=== PATIENT | male | born 1935 | race Caucasian/White ===

== ENCOUNTER 2017-08-31 20:34 | Emergency (ER) | payer BC ==
[~2017-08-31] VITALS: Ht 185.4 cm; Wt 74.0 kg
[2017-08-31 20:35] VITALS: BP 168/111; PULSE 92; RESP 16; TEMP 97.4; O2SAT 98
--- NOTE | 2017-08-31 20:51 | PD ---
HPI Chief Complaint: Complaint Time Seen by Provider: 20:47 Travel History International Travel<30 days: No Contact w/Intl Traveler<30days: No Traveled to known affect area: No History of Present Illness HPI 82-year-old male with history of A. fib, on Coumadin, hypertension, CHF, presents emergency department for evaluation of acute hematuria today. Patient denies any pain. Denies any trauma. Denies any difficulty and flow. Patient states this happened 6-8 months ago. He was seen and evaluated by a urologist in [place] where he is from. They said he may have adhesions, but they did not see anything else abnormal. Patient's last INR was 2 weeks ago, prior to him vacationing here. It was normal. Denies any other bleeding or easily bruising. No black tarry or uriel red stools. No other symptoms to report. PFSH Past Medical History Hx Anticoagulant Therapy: Yes (COUMADIN ) Atrial Fibrillation: Yes Congestive Heart Failure: Yes Hypertension: Yes Past Surgical History Cardiac Surgery: Yes (PACEMAKER ) Genitourinary Surgery: Yes (PROSTATE ) Social History Alcohol Use: No Tobacco Use: Yes Substance Use: No Allergies-Medications (Allergen,Severity, Reaction): Coded Allergies: No Known Allergies (Unverified , 08/31/17) Review of Systems Except as stated in HPI: all other systems reviewed are Neg Physical Exam Narrative GENERAL: Well-nourished elderly male patient, ambulatory and in no acute distress. SKIN: Focused skin assessment warm/dry. HEAD: Atraumatic. Normocephalic. EYES: Pupils equal and round. No scleral icterus. No injection or drainage. ENT: No nasal bleeding or discharge. Mucous membranes pink and moist. NECK: Trachea midline. No JVD. CARDIOVASCULAR: Regular rate and irregular rhythm. No murmur appreciated. RESPIRATORY: No accessory muscle use. Clear to auscultation. Breath sounds equal bilaterally. GASTROINTESTINAL: Abdomen soft, non-tender, nondistended. Hepatic and splenic margins not palpable. MUSCULOSKELETAL: No obvious deformities. No clubbing. No cyanosis. No edema. NEUROLOGICAL: Awake and alert. No obvious cranial nerve deficits. Motor grossly within normal limits. Normal speech. PSYCHIATRIC: Appropriate mood and affect; insight and judgment normal. Data Data Last Documented VS Vital Signs Date Time Temp Pulse Resp B/P (MAP) Pulse Ox O2 Delivery O2 Flow Rate FiO2 08/31/17 20:35 97.4 92 16 168/111 (130) 98 Room Air Orders Orders Urinalysis - C+S If Indicated (08/31/17 21:02) Coag Profile (08/31/17 21:02) Complete Blood Count With Diff (08/31/17 21:02) Basic Metabolic Panel (Bmp) (08/31/17 21:02) Iv Access Insert/Monitor (08/31/17 21:02) Urine Culture (08/31/17 21:30) Potassium Chloride (Kcl) (08/31/17 22:30) Labs Laboratory Tests Test 08/31/17 21:30 08/31/17 21:31 Urine Color RED Urine Turbidity MARKED Urine pH 6.5 Urine Specific [place] 1.019 Urine Protein 300 mg/dL Urine Glucose (UA) NEG mg/dL Urine Ketones NEG mg/dL Urine Occult Blood LARGE Urine Nitrite NEG Urine Bilirubin NEG Urine Urobilinogen LESS THAN 2.0 MG/DL Urine Leukocyte Esterase NEG Urine RBC /hpf Urine WBC 77 /hpf Urine WBC Clumps MANY Microscopic Urinalysis Comment CULTURE INDICATED White Blood Count 8.0 TH/MM3 Red Blood Count 4.94 MIL/MM3 Hemoglobin 14.2 GM/DL Hematocrit 41.9 % Mean Corpuscular Volume 84.9 FL Mean Corpuscular Hemoglobin 28.8 PG Mean Corpuscular Hemoglobin Concent 33.9 % Red Cell Distribution Width 15.6 % Platelet Count 141 TH/MM3 Mean Platelet Volume 8.2 FL Neutrophils (%) (Auto) 70.5 % Lymphocytes (%) (Auto) 13.5 % Monocytes (%) (Auto) 11.8 % Eosinophils (%) (Auto) 3.1 % Basophils (%) (Auto) 1.1 % Neutrophils # (Auto) 5.7 TH/MM3 Lymphocytes # (Auto) 1.1 TH/MM3 Monocytes # (Auto) 0.9 TH/MM3 Eosinophils # (Auto) 0.3 TH/MM3 Basophils # (Auto) 0.1 TH/MM3 CBC Comment DIFF FINAL Differential Comment Prothrombin Time 23.0 SEC Prothromb Time International Ratio 2.3 RATIO Activated Partial Thromboplast Time 40.3 SEC Blood Urea Nitrogen 34 MG/DL Creatinine 1.70 MG/DL Random Glucose 132 MG/DL Calcium Level 8.7 MG/DL Sodium Level 138 MEQ/L Potassium Level 3.2 MEQ/L Chloride Level 104 MEQ/L Carbon Dioxide Level 28.4 MEQ/L Anion Gap 6 MEQ/L Estimat Glomerular Filtration Rate 39 ML/MIN [facility] Medical Decision Making Medical Screen Exam Complete: Yes Emergency Medical Condition: Yes Medical Record Reviewed: Yes Differential Diagnosis Hypo-coagulopathy versus hemorrhagic cystitis versus neoplasm versus pyelonephritis Narrative Course 82-year-old male presents to emergency department for evaluation of acute onset hematuria. Patient has no pain. States that he feels well. Exam is unremarkable except for uriel red hematuria. Basic lab work and urinalysis are sent. Laboratory Tests Test 08/31/17 21:30 08/31/17 21:31 Urine Color RED Urine Turbidity MARKED Urine pH 6.5 Urine Specific [place] 1.019 Urine Protein 300 mg/dL Urine Glucose (UA) NEG mg/dL Urine Ketones NEG mg/dL Urine Occult Blood LARGE Urine Nitrite NEG Urine Bilirubin NEG Urine Urobilinogen LESS THAN 2.0 MG/DL Urine Leukocyte Esterase NEG Urine RBC /hpf Urine WBC 77 /hpf Urine WBC Clumps MANY Microscopic Urinalysis Comment CULTURE INDICATED White Blood Count 8.0 TH/MM3 Red Blood Count 4.94 MIL/MM3 Hemoglobin 14.2 GM/DL Hematocrit 41.9 % Mean Corpuscular Volume 84.9 FL Mean Corpuscular Hemoglobin 28.8 PG Mean Corpuscular Hemoglobin Concent 33.9 % Red Cell Distribution Width 15.6 % Platelet Count 141 TH/MM3 Mean Platelet Volume 8.2 FL Neutrophils (%) (Auto) 70.5 % Lymphocytes (%) (Auto) 13.5 % Monocytes (%) (Auto) 11.8 % Eosinophils (%) (Auto) 3.1 % Basophils (%) (Auto) 1.1 % Neutrophils # (Auto) 5.7 TH/MM3 Lymphocytes # (Auto) 1.1 TH/MM3 Monocytes # (Auto) 0.9 TH/MM3 Eosinophils # (Auto) 0.3 TH/MM3 Basophils # (Auto) 0.1 TH/MM3 CBC Comment DIFF FINAL Differential Comment Prothrombin Time 23.0 SEC Prothromb Time International Ratio 2.3 RATIO Activated Partial Thromboplast Time 40.3 SEC Blood Urea Nitrogen 34 MG/DL Creatinine 1.70 MG/DL Random Glucose 132 MG/DL Calcium Level 8.7 MG/DL Sodium Level 138 MEQ/L Potassium Level 3.2 MEQ/L Chloride Level 104 MEQ/L Carbon Dioxide Level 28.4 MEQ/L Anion Gap 6 MEQ/L Estimat Glomerular Filtration Rate 39 ML/MIN Sites patient's urine, lab work is without acute concern. He does have renal insufficiency and elevated BUNs however is likely due to diuretic use and history CHF. I discussed the patient my attending physician who agrees he can be discharged home at this time. Patient will be returning to [place] this weekend and agrees to follow-up with urology. I've explained him if he feels as though he is retaining urine or unable to void he needs to return immediately. He agrees to return immediately with any acute worsening of symptoms. Diagnosis Primary Impression: Hematuria, gross Referrals: Urologist Patient Instructions: General Instructions, Hematuria (ED) Additional Instructions: It is important that you follow-up with urologist as soon as possible Return with any acute worsening of symptoms Your INR today was 2.3 Med/Other Pt SpecificInfo: No Change to Meds Disposition: 01 DISCHARGE HOME Condition: Stable Kandi Jessica Aug 31, 2017 20:51
[2017-08-31 21:58] LABS: AUTOMATED NEUTROPHIL # 5.7 TH/MM3 (1.8-7.7); BASOPHIL # 0.1 TH/MM3 (0-0.2); BASOPHIL % 1.1 % (0.0-2.0); EOSINOPHIL # 0.3 TH/MM3 (0-0.4); EOSINOPHIL % 3.1 % (0.0-4.0); HEMATOCRIT 41.9 % (39.0-51.0); HEMOGLOBIN 14.2 GM/DL (13.0-17.0); LYMPH % 13.5 % (9.0-44.0); LYMPHOCYTE # 1.1 TH/MM3 (1.0-4.8); MEAN CELL VOLUME 84.9 FL (80.0-100.0); MEAN CORPUSCULAR HEMOGLOBIN 28.8 PG (27.0-34.0); MEAN CORPUSCULAR HGB CONC 33.9 % (32.0-36.0); MEAN PLATELET VOLUME 8.2 FL (7.0-11.0); MONO % 11.8 % (0.0-8.0); MONOCYTE # 0.9 TH/MM3 (0-0.9); NEUT % 70.5 % (16.0-70.0); PLATELET COUNT 141 TH/MM3 (150-450); RED BLOOD COUNT 4.94 MIL/MM3 (4.50-5.90); RED CELL DISTRIBUTION WIDTH 15.6 % (11.6-17.2)
[2017-08-31 22:04] LABS: BILIRUBIN, URINE NEG (NEG); BLOOD, URINE LARGE (NEG); GLUCOSE,URINE NEG (NEG); KETONE, URINE NEG (NEG); NITRITE,URINE NEG (NEG); PH, URINE 6.5 (5.0-8.5); URINE COLOR RED (YELLW/STRAW); URINE LEUKOCYTE ESTERASE NEG (NEG); WHITE BLOOD CELL CLUMPS MANY
[2017-08-31 22:12] LABS: BICARBONATE 28.4 MEQ/L (21.0-32.0); CALCIUM 8.7 MG/DL (8.5-10.1); CREATININE 1.7 MG/DL (0.60-1.30)
[2017-08-31 22:17] LABS: INTERNATIONAL NORMALIZED RATIO 2.3 RATIO
[2017-08-31] MEDS ORDERED: POTASSIUM CHLORIDE 20 MEQ CONTROLLED RELEASE TAB PO ONE (22:30)
[2017-08-31 22:34] VITALS: BP 160/100; PULSE 80; RESP 16
[2017-09-01] MEDS ORDERED: VITA2000 PO (13:34)
[2017-09-01] MEDS ORDERED: METO50TA PO (13:34)
[2017-09-01] MEDS ORDERED: WARF-23 PO (13:34)
[2017-09-01] MEDS ORDERED: LOSA25TA PO (13:34)
[2017-09-01] MEDS ORDERED: MULTTAB67 PO (13:34)
[2017-09-01] MEDS ORDERED: CEPH-460 PO (15:41)
[2017-09-01] MEDS ORDERED: HYDR-3799 PO (16:30)
== END 2017-08-31 22:48 | disposition home or self-care (01) ==
LOC: NEPE 20:34
DX: R31.0 Gross hematuria (principal); N28.9 Disorder of kidney and ureter, unspecified; I11.0 Hypertensive heart disease with heart failure; I50.9 Heart failure, unspecified; I48.91 Unspecified atrial fibrillation; Z72.0 Tobacco use
CPT/HCPCS: 80048; 81001; 85025; 85610; 85730; 87086; 99283

== ENCOUNTER 2017-09-01 12:07 | Emergency (ER) | payer BC ==
[2017-09-01 12:46] VITALS: BP 164/121; PULSE 95; RESP 16; TEMP 97.6; O2SAT 96
--- NOTE | 2017-09-01 13:01 | PD ---
HPI Chief Complaint: Complaint Time Seen by Provider: 12:55 Travel History International Travel<30 days: No Contact w/Intl Traveler<30days: No Traveled to known affect area: No History of Present Illness HPI 82 YO M with PMH of HTN, a. fib on Coumadin presents to the ED for evaluation of hematuria and feeling of incomplete bladder emptying. The patient endorses history of BPH status post resection. He endorses history of urethral strictures. He states he only had small, bloody urinary voids for the last few days. On presentation he denies fevers, chills, nausea, vomiting, abdominal pain, dysuria. He states that he otherwise feels great. He is visiting from [place]. He was seen in the ED yesterday. is at bedside and states that they return home Friday and she is arranging Urology follow up. PFSH Past Medical History Hx Anticoagulant Therapy: Yes (COUMADIN) Atrial Fibrillation: Yes Cardiovascular Problems: Yes (AFIB) Congestive Heart Failure: Yes Hypertension: Yes Past Surgical History Cardiac Surgery: Yes (PACEMAKER ) Genitourinary Surgery: Yes (PROSTATE ) Social History Alcohol Use: No Tobacco Use: Yes Substance Use: No Allergies-Medications (Allergen,Severity, Reaction): Coded Allergies: No Known Allergies (Unverified , 09/01/17) Reported Meds & Prescriptions Reported Meds & Active Scripts Active Hydralazine HCl 25 Mg Tablet 25 Mg PO BID 4 Days Take 1/2 tablet twice a day for the first four days. Take 1 tablet twice per day after that. Keflex (Cephalexin) 500 Mg Cap 500 Mg PO Q12H 7 Days Reported Multiple Vitamin 1 Tab 1 Tab PO DAILY Vitamin D3 (Cholecalciferol) 2,000 Unit Cap 2,000 Units PO DAILY Warfarin 5 Mg Tab 5 Mg PO DAILY Metoprolol Tartrate 50 Mg Tab 50 Mg PO BID Losartan (Losartan Potassium) 25 Mg Tab 12.5 Mg PO BID Review of Systems Except as stated in HPI: all other systems reviewed are Neg Physical Exam Narrative GENERAL: Well-nourished, well-developed white male in no acute distress. SKIN: Focused skin assessment warm/dry. HEAD: Normocephalic. EYES: No scleral icterus. No injection or drainage. NECK: Supple, trachea midline. No JVD or lymphadenopathy. CARDIOVASCULAR: Regular rate and rhythm without murmurs, gallops, or rubs. RESPIRATORY: Breath sounds clear and equal bilaterally. No accessory muscle use. GASTROINTESTINAL: Abdomen soft, mildly distended in the suprapubic area. Tender to palpation in the suprapubic area. Active bowel sounds. MUSCULOSKELETAL: No cyanosis, or edema. BACK: Nontender without obvious deformity. No CVA tenderness. Data Data Last Documented VS Vital Signs Date Time Temp Pulse Resp B/P (MAP) Pulse Ox O2 Delivery O2 Flow Rate FiO2 09/01/17 16:32 90 18 150/93 (112) 98 09/01/17 15:41 Room Air 09/01/17 12:46 97.6 Orders Orders Complete Blood Count With Diff (09/01/17 12:48) Basic Metabolic Panel (Bmp) (09/01/17 12:48) Urinalysis - C+S If Indicated (09/01/17 12:48) Bladder Scan PRN (09/01/17 12:57) Urinary Catheter Management MONICA.Q8H (09/01/17 14:01) Urine Culture (09/01/17 13:40) Hydralazine Inj (Apresoline Inj) (09/01/17 15:30) Bag, Leg 32oz Sterile Large Ea (09/01/17 16:17) Ed Discharge Order (09/01/17 16:17) Labs Laboratory Tests Test 09/01/17 13:40 White Blood Count 7.3 TH/MM3 Red Blood Count 5.11 MIL/MM3 Hemoglobin 14.6 GM/DL Hematocrit 43.7 % Mean Corpuscular Volume 85.6 FL Mean Corpuscular Hemoglobin 28.6 PG Mean Corpuscular Hemoglobin Concent 33.4 % Red Cell Distribution Width 15.7 % Platelet Count 152 TH/MM3 Mean Platelet Volume 8.4 FL Neutrophils (%) (Auto) 73.6 % Lymphocytes (%) (Auto) 10.3 % Monocytes (%) (Auto) 13.3 % Eosinophils (%) (Auto) 1.8 % Basophils (%) (Auto) 1.0 % Neutrophils # (Auto) 5.4 TH/MM3 Lymphocytes # (Auto) 0.8 TH/MM3 Monocytes # (Auto) 1.0 TH/MM3 Eosinophils # (Auto) 0.1 TH/MM3 Basophils # (Auto) 0.1 TH/MM3 CBC Comment DIFF FINAL Differential Comment Urine Color RED Urine Turbidity CLOUDY Urine pH 6.5 Urine Specific [place] 1.015 Urine Protein 300 mg/dL Urine Glucose (UA) NEG mg/dL Urine Ketones NEG mg/dL Urine Occult Blood LARGE Urine Nitrite NEG Urine Bilirubin NEG Urine Urobilinogen LESS THAN 2.0 MG/DL Urine Leukocyte Esterase NEG Urine RBC /hpf Urine WBC 111 /hpf Urine Bacteria OCC /hpf Microscopic Urinalysis Comment CULTURE INDICATED Blood Urea Nitrogen 34 MG/DL Creatinine 1.55 MG/DL Random Glucose 87 MG/DL Calcium Level 8.5 MG/DL Sodium Level 139 MEQ/L Potassium Level 3.7 MEQ/L Chloride Level 103 MEQ/L Carbon Dioxide Level 29.1 MEQ/L Anion Gap 7 MEQ/L Estimat Glomerular Filtration Rate 43 ML/MIN [facility] Medical Decision Making Medical Screen Exam Complete: Yes Emergency Medical Condition: Yes Differential Diagnosis hematuria versus urinary obstruction versus anemia versus hypertension versus other Narrative Course 82 YO M with PMH of HTN, a. rahel on Coumadin presents to the ED for evaluation of hematuria and feeling of incomplete bladder emptying. The patient endorses history of BPH status post resection. He endorses history of urethral strictures. He states he only had small, bloody urinary voids for the last few days. He is from [place]. He was seen in the ED yesterday. is at bedside and states that they return home Friday and she is arranging Urology follow up. BP 164/121 on presentation. On exam this is a nontoxic-appearing white male in no acute distress. He does have suprapubic tenderness in the suprapubic area is mildly distended. IV was established. Lab work was obtained. Bladder scan reveals a bladder volume of approximately 450 ML's. Three-way catheter was inserted. 2 L of normal saline were flushed through the catheter. INR drawn yesterday was 2.3. CBC: No acute abnormalities CMP: BUN 34, creatinine 1.55. Creatinine trending downwards from yesterday's lab work. UA: Red, large occult blood, 111 wbc's, occasional bacteria. Culture pending. Patient was administered 10 mg hydralazine IV. BP trending downwards. He is prescribed Keflex 500 mg twice a day 7 days. He is prescribed 25 mg hydralazine, half tab twice a day 4 days, one tab twice a day after that. He is discharged with indwelling Jimenez catheter and leg bag. He was provided with detailed care instructions for the Jimenez catheter. He is instructed to take the medications as prescribed. We discussed reasons to return to the ED. The patient is stated understanding of the instructions and are agreeable a care plan. The patient is stable and discharged home. Diagnosis Primary Impression: Hematuria Qualified Codes: R31.9 - Hematuria, unspecified Additional Impressions: Urinary obstruction Hypertension Qualified Codes: I10 - Essential (primary) hypertension Referrals: Urologist Patient Instructions: Jimenez Catheter Placement and Care (DC), General Instructions, Hematuria (ED) Additional Instructions: Rest, hydrate. Take the antibiotics as prescribed until every pill is gone. Take hydralazine as prescribed. Discontinue for blood pressures below 100 systolic (top number) or dizziness, weakness. Keep the Jimenez until you're evaluated by the urologist. Follow up with your primary care for evaluation of high blood pressures upon return home. Follow-up with the urologist upon return home as planned. Return to the ED for worsening symptoms or any urgent or emergent medical condition. Scripts Hydralazine HCl (Hydralazine HCl) 25 Mg Tablet 25 MG PO BID for Blood Pressure Management for 4 Days, #8 TAB 0 Refills Take 1/2 tablet twice a day for the first four days. Take 1 tablet twice per day after that. Prov: Abhay Smith MD 09/01/17 Cephalexin (Keflex) 500 Mg Cap 500 MG PO Q12H for Infection for 7 Days, #14 CAP 0 Refills Prov: Abhay Smith MD 09/01/17 Disposition: 01 DISCHARGE HOME Condition: Stable Gloria Cruz Sep 01, 2017 13:01
[2017-09-01 13:28] VITALS: BP 175/126; PULSE 82; RESP 18; O2SAT 96
[2017-09-01] MEDS ORDERED: WARF-23 PO (13:34)
[2017-09-01] MEDS ORDERED: METO50TA PO (13:34)
[2017-09-01] MEDS ORDERED: VITA2000 PO (13:34)
[2017-09-01] MEDS ORDERED: LOSA25TA PO (13:34)
[2017-09-01] MEDS ORDERED: MULTTAB67 PO (13:34)
[2017-09-01 14:09] LABS: AUTOMATED NEUTROPHIL # 5.4 TH/MM3 (1.8-7.7); BASOPHIL # 0.1 TH/MM3 (0-0.2); EOSINOPHIL # 0.1 TH/MM3 (0-0.4); EOSINOPHIL % 1.8 % (0.0-4.0); HEMATOCRIT 43.7 % (39.0-51.0); HEMOGLOBIN 14.6 GM/DL (13.0-17.0); LYMPH % 10.3 % (9.0-44.0); LYMPHOCYTE # 0.8 TH/MM3 (1.0-4.8); MEAN CELL VOLUME 85.6 FL (80.0-100.0); MEAN CORPUSCULAR HEMOGLOBIN 28.6 PG (27.0-34.0); MEAN CORPUSCULAR HGB CONC 33.4 % (32.0-36.0); MEAN PLATELET VOLUME 8.4 FL (7.0-11.0); MONO % 13.3 % (0.0-8.0); NEUT % 73.6 % (16.0-70.0); PLATELET COUNT 152 TH/MM3 (150-450); RED BLOOD COUNT 5.11 MIL/MM3 (4.50-5.90); RED CELL DISTRIBUTION WIDTH 15.7 % (11.6-17.2); WHITE BLOOD COUNT 7.3 TH/MM3 (4.0-11.0)
[2017-09-01 14:30] LABS: BACTERIA, URINE OCC /hpf; BILIRUBIN, URINE NEG (NEG); BLOOD, URINE LARGE (NEG); GLUCOSE,URINE NEG (NEG); KETONE, URINE NEG (NEG); NITRITE,URINE NEG (NEG); PH, URINE 6.5 (5.0-8.5); URINE COLOR RED (YELLW/STRAW); URINE LEUKOCYTE ESTERASE NEG (NEG)
[2017-09-01] MEDS ORDERED: hydrALAZINE HCL 20 MG/ML VIAL IV PUSH ONE (15:30)
[2017-09-01 15:32] LABS: BICARBONATE 29.1 MEQ/L (21.0-32.0); CALCIUM 8.5 MG/DL (8.5-10.1); CREATININE 1.55 MG/DL (0.60-1.30)
[2017-09-01 15:41] VITALS: BP 152/103; PULSE 84; RESP 18; O2SAT 82
[2017-09-01] MEDS ORDERED: CEPH-460 PO (15:41)
[2017-09-01] MEDS ORDERED: HYDR-3799 PO (16:30)
[2017-09-01 16:32] VITALS: BP 150/93
[2017-09-02] MEDS ORDERED: PHEN0.4T PO (03:09)
== END 2017-09-01 16:56 | disposition home or self-care (01) ==
LOC: NEPC 12:07
DX: R31.9 Hematuria, unspecified (principal); N40.1 Benign prostatic hyperplasia with lower urinary tract symptoms; N35.9 Urethral stricture, unspecified; I11.0 Hypertensive heart disease with heart failure; I50.9 Heart failure, unspecified; I48.91 Unspecified atrial fibrillation; Z79.01 Long term (current) use of anticoagulants
CPT/HCPCS: 51702; 51798; 80048; 81001; 85025; 87086; 96374; 99284; J0360

== ENCOUNTER 2017-09-01 22:39 | Emergency (ER) | payer BC ==
[~2017-09-01] VITALS: Ht 165.1 cm; Wt 72.0 kg
[~2017-09-01 22:39] MED LIST: CEPH-460 PO; HYDR-3799 PO; LOSA25TA PO; METO50TA PO; MULTTAB67 PO; VITA2000 PO; WARF-23 PO
[2017-09-01 23:17] VITALS: BP 166/109; PULSE 98; RESP 16; TEMP 99.6; O2SAT 96
--- NOTE | 2017-09-02 02:06 | RADRPT ---
EXAM DATE/TIME: 09/02/2017 01:27 [facility] COMPARISON: No previous studies available for comparison. INDICATIONS : Cough. MEDICAL HISTORY : None. SURGICAL HISTORY : Pacemaker. ENCOUNTER: Initial ACUITY: 1 day PAIN SCORE: 0/10 LOCATION: Bilateral chest FINDINGS: No significant focal pleural or parenchymal opacities. Cardiac silhouette is mildly prominent. Stable dual-lead AICD device. Osseous structures are intact. CONCLUSION: 1. No acute cardiopulmonary disease. Ravi Wynne MD on September 02, 2017 at 2:03 Board Certified Radiologist. This report was verified electronically.
--- NOTE | 2017-09-02 02:12 | PD ---
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 The patient was seen in the emergency department on August 31 and earlier on September 01 with concerns about this. He is anticoagulated on Coumadin. The patient initially had laboratory studies done, however no catheter was placed, subsequent to that the patient developed a sensation that he was incompletely evacuating his bladder and return back on the at which point a three-way catheter was placed. The patient was discharged home after placement. The patient reports that he did have an episode where he leaked around the catheter and became concerned. On arrival it appears that the patient has free flow of urine. The patient reports that he has had hematuria in the past a few years ago evaluated with cystoscopy and the hematuria was thought to be related to scar tissue. On review of systems otherwise, the patient denies having any recent fevers,cough, congestion, neck pain, chest pain, shortness of breath, abdominal pain, vomiting, diarrhea, or neurologic symptoms. PFSH Past Medical History Narrative Medical The patient's past medical history is significant for atrial fibrillation, hypertension, congestive heart failure, history of pacemaker placement Hx Anticoagulant Therapy: Yes (COUMADIN) Atrial Fibrillation: Yes Cardiovascular Problems: Yes (AFIB) Congestive Heart Failure: Yes Hypertension: Yes Immunizations Current: Yes Tetanus Vaccination: Unknown Influenza Vaccination: Yes Past Surgical History Narrative Surgical The patient's past surgical history is significant for pacemaker placement, prostate surgery Cardiac Surgery: Yes (PACEMAKER ) Genitourinary Surgery: Yes (PROSTATE ) Social History Alcohol Use: No Tobacco Use: Yes Substance Use: No Allergies-Medications (Allergen,Severity, Reaction): Coded Allergies: No Known Allergies (Unverified , 09/01/17) Reported Meds & Prescriptions Reported Meds & Active Scripts Active Hydralazine HCl 25 Mg Tablet 25 Mg PO BID 4 Days Take 1/2 tablet twice a day for the first four days. Take 1 tablet twice per day after that. Keflex (Cephalexin) 500 Mg Cap 500 Mg PO Q12H 7 Days Reported Multiple Vitamin 1 Tab 1 Tab PO DAILY Vitamin D3 (Cholecalciferol) 2,000 Unit Cap 2,000 Units PO DAILY Warfarin 5 Mg Tab 5 Mg PO DAILY Metoprolol Tartrate 50 Mg Tab 50 Mg PO BID Losartan (Losartan Potassium) 25 Mg Tab 12.5 Mg PO BID Review of Systems Except as stated in HPI: all other systems reviewed are Neg General / Constitutional: No: Fever Eyes: No: Visual changes HENT: No: Headaches Cardiovascular: No: Chest Pain or Discomfort Respiratory: No: Shortness of Breath Gastrointestinal: No: Abdominal Pain Genitourinary: Positive: Hematuria, No: Dysuria Musculoskeletal: No: Pain Skin: No Rash Neurologic: No: Weakness Psychiatric: No: Depression Endocrine: No: Polydipsia Hematologic/Lymphatic: No: Easy Bruising Physical Exam Narrative General: The patient is a well-developed well-nourished male in no acute distress. Head and Neck exam: Head is normocephalic atraumatic. Eyes: EOMI, pupils are equal round and reactive to light. Nose: Midline septum with pink mucous membranes Mouth: Dentition unremarkable. Moist mucus membranes. Posterior oropharynx is not erythematous. No tonsillar hypertrophy. Uvula midline. Airway patent. Neck: No palpable lymphadenopathy. No nuchal rigidity. No thyromegaly. Cardiovascular: Regular rate and rhythm without murmurs, gallops, or rubs. Lungs: Clear to auscultation bilaterally. No wheezes, rhonchi, or rales. Abdomen: Soft, without tenderness to palpation in all 4 quadrants of the abdomen. No guarding, rebound, or rigidity. Normal bowel sounds are audible. No tenderness on palpation of McBurney's point. No bladder distention palpated per Extremities: No clubbing, cyanosis, or edema. 2+ pulses in all 4 extremities. No calf tenderness on palpation. Back: No spinous process tenderness to palpation. No costovertebral angle tenderness to palpation. Neurologic Exam: Grossly nonfocal. Skin Exam: No rash noted. Intact skin that is warm and dry. Data Data Last Documented VS Vital Signs Date Time Temp Pulse Resp B/P (MAP) Pulse Ox O2 Delivery O2 Flow Rate FiO2 09/01/17 23:17 99.6 98 16 166/109 (128) 96 Orders Orders Complete Blood Count With Diff (09/02/17 00:58) Basic Metabolic Panel (Bmp) (09/02/17 00:58) Prothrombin Time / Inr (Pt) (09/02/17 00:58) Act Partial Throm Time (Ptt) (09/02/17 00:58) Urinalysis - C+S If Indicated (09/02/17 00:58) Chest, Single Ap (09/02/17 00:58) Iv Access Insert/Monitor (09/02/17 00:58) Ecg Monitoring (09/02/17 00:58) Oximetry (09/02/17 00:58) Urinary Catheter Insert/Apply (09/02/17 00:58) Bladder/Catheter Irrigation (09/02/17 01:00) MDM Medical Decision Making Medical Screen Exam Complete: Yes Emergency Medical Condition: Yes Medical Record Reviewed: Yes Differential Diagnosis Catheter clogged with blood clot versus bladder spasm Narrative Course During the course of the patient's emergency department visit, the patient's history, examination, and differential diagnosis were reviewed with the patient. The patient was placed on a lunchroom monitor with oximetry and frequent blood pressure monitoring. The patient's electronic medical record was reviewed. The patient has a large bag attached to the catheter, not a leg bag. The patient reported symptoms of bladder spasm with the noted urine incontinence around the catheter. The patient was placed to a leg bag. The patient's bladder was irrigated. There is free flow of urine. The patient reports feeling improved. The patient prefers to not have blood work repeated at this time as he just had blood work done earlier today. The patient was noted on 225 to have an INR of 2.3. The patient's hemoglobin on 226 was 14.6. The patient's last BUN and creatinine had actually improved, BUN 34, creatinine 1.55. Patient had a urinalysis done previously that was sent for culture and has been negative for growth for 24 hours The patient reports that he is visiting from [place]. He reports that he plans to return back tomorrow. The patient is resting comfortably and feels better, is alert and in no distress. The patient's results and examination findings were discussed with the patient. The repeat examination is unremarkable and benign. The history, exam, diagnostic testing, and current condition do not suggest any significant pathology to warrant further testing, continued ED treatment, admission, or surgical evaluation at this point. The vital signs have been stable. The patient does not have uncontrollable pain, intractable vomiting, or other significant symptoms. The patient's condition is stable and appropriate for discharge. The patient will pursue further outpatient evaluation with a primary care physician or other designated or consulting physician as indicated in the discharge instructions. The patient expressed understanding and was agreeable with this plan. Diagnosis Primary Impression: Hematuria Qualified Codes: R31.0 - Gross hematuria Additional Impression: Urinary retention Referrals: Urologist call for appointment Patient Instructions: General Instructions, Hematuria (ED), Urinary Retention in Men (ED) Med/Other Pt SpecificInfo: Prescription(s) given Scripts Phenazopyridine (Pyridium) 100 Mg Tab 100 MG PO Q8H Y for DYSURIA, #9 TAB 0 Refills Prov: Mariza Sales MD 09/02/17 Disposition: DISCHARGE HOME Condition: Stable Mariza Sales MD Sep 02, 2017 02:12
[2017-09-02] MEDS ORDERED: PHEN0.4T PO (03:09)
== END 2017-09-02 03:25 | disposition home or self-care (01) ==
LOC: NEPE 22:39
DX: R31.0 Gross hematuria (principal); R33.9 Retention of urine, unspecified; I48.91 Unspecified atrial fibrillation; I11.0 Hypertensive heart disease with heart failure; I50.9 Heart failure, unspecified; Z79.01 Long term (current) use of anticoagulants; Z72.0 Tobacco use
CPT/HCPCS: 51700; 71045